=== PATIENT | male | born 1960 | race Caucasian/White ===

== ENCOUNTER → 2016-06-15 | Outpatient (CLI) | payer BC ==
[~2016-06-15] MED LIST: CLARITIN D TAB1 TAB PO; CLARITIN10 MG PO; FLOVENT0.11 MG/AC IH; IBUPROFEN800 MG PO; LOW DOSE ASPIRI81 MG PO; VENTOLIN0.09 MG IH
== END ==
LOC: COL.RAD 15:25
DX: R14.0 Abdominal distension (gaseous) (principal); R19.7 Diarrhea, unspecified

== ENCOUNTER → 2016-06-16 | Outpatient (CLI) | payer BC ==
[2016-06-16 18:25] LABS: BASO # 0.1 (0.0-0.2); BASO % 0.6 % (0.0-2.0); EOS # 0.2 (0.0-0.7); EOS % 2.4 % (0-4.0); GRAN # 4.8 (1.4-6.5); GRAN % 59.3 % (42.2-75.2); HEMATOCRIT 46.7 % (42.0-52.0); HEMOGLOBIN 15.5 g/dl (13.5-18.0); LYMPH # 2.3 (1.2-3.4); MEAN CELL VOLUME 87 fl (80.0-100.0); MEAN CORPUSCULAR HEMOGLOBIN 29 pg (27.0-31.0); MEAN CORPUSCULAR HGB CONC 33 g/dl (33.0-37.0); MEAN PLATELET VOLUME 9.9 fl (7.4-10.4); MONO # 0.8 (0.1-0.6); MONO % 9.5 % (1.7-9.3); PLATELET COUNT 291 K/mm3 (130-400); RED BLOOD COUNT 5.38 M/mm3 (4.20-5.60); REDCELL DISTRIBUTION WIDTH-CV 14.4 % (11.5-14.5); WHITE BLOOD COUNT 8.1 K/mm3 (4.8-10.8)
[2016-06-16 18:34] LABS: ADJUSTED CALCIUM 9.9 mg/dL (8.4-10.2); ALBUMIN 4.3 gm/dL (3.5-5.0); BILIRUBIN,TOTAL 0.7 mg/dL (0.0-1.0); CALCIUM 10.1 mg/dL (8.4-10.2); CREATININE, serum 0.92 mg/dL (0.66-1.25); POTASSIUM 4.3 mmol/L (3.4-5.0); TOTAL PROTEIN 7.4 gm/dL (6.4-8.2)
[2016-06-16 18:35] LABS: PH 7 (5-8); SQUAMOUS EPITHELIAL None Seen /hpf; URINE APPEARANCE Clear; URINE BACTERIA None Seen /hpf; URINE BILIRUBIN Negative (NEGATIVE); URINE BLOOD Negative (NEGATIVE); URINE COLOR Straw; URINE GLUCOSE Negative (NEGATIVE); URINE KETONE Negative (NEGATIVE); URINE RBC 0-2 /hpf; URINE UROBILINOGEN Negative (NEGATIVE); URINE WBC 0-2 /hpf
== END ==
LOC: COL.LAB 17:04
PROVIDERS: Registered Nurse
DX: R14.0 Abdominal distension (gaseous) (principal); R19.7 Diarrhea, unspecified

== ENCOUNTER → 2016-06-23 | Outpatient (CLI) | payer BC | LOC: EDSTATUS 14:29 → COL.LAB 15:35 | DX: R19.7 Diarrhea, unspecified (principal) ==

== ENCOUNTER → 2017-05-26 | Outpatient (CLI) | payer BC ==
[2017-05-26 16:05] LABS: BASO # 0.1 (0.0-0.2); BASO % 0.6 % (0.0-2.0); EOS # 0.4 (0.0-0.7); EOS % 4.1 % (0-4.0); GRAN # 6.1 (1.4-6.5); HEMATOCRIT 48.2 % (42.0-52.0); LYMPH # 2.1 (1.2-3.4); LYMPH % 22.3 % (20.0-51.0); MEAN CELL VOLUME 88 fl (80.0-100.0); MEAN CORPUSCULAR HEMOGLOBIN 29 pg (27.0-31.0); MEAN CORPUSCULAR HGB CONC 33 g/dl (33.0-37.0); MEAN PLATELET VOLUME 9.7 fl (7.4-10.4); MONO # 0.7 (0.1-0.6); MONO % 7.7 % (1.7-9.3); PLATELET COUNT 239 K/mm3 (130-400); RED BLOOD COUNT 5.49 M/mm3 (4.20-5.60); REDCELL DISTRIBUTION WIDTH-CV 14.6 % (11.5-14.5)
[2017-05-26 16:09] LABS: MUCOUS Present /lpf; PH 6 (5-8); SQUAMOUS EPITHELIAL None Seen /hpf; URINE APPEARANCE Clear; URINE BACTERIA None Seen /hpf; URINE BILIRUBIN Negative (NEGATIVE); URINE BLOOD Negative (NEGATIVE); URINE COLOR Yellow; URINE GLUCOSE Negative (NEGATIVE); URINE KETONE Negative (NEGATIVE); URINE LEUKOCYTE ESTERASE Negative (NEGATIVE); URINE NITRATE Negative (NEGATIVE); URINE PROTEIN(semi-quant) Negative (NEGATIVE); URINE RBC None Seen /hpf; URINE UROBILINOGEN Negative (NEGATIVE)
[2017-05-26 16:13] LABS: ALBUMIN 4.1 gm/dL (3.5-5.0); BILIRUBIN,TOTAL 0.4 mg/dL (0.0-1.0); CALCIUM 9.7 mg/dL (8.4-10.2); CREATININE, serum 0.82 mg/dL (0.66-1.25); POTASSIUM 3.9 mmol/L (3.4-5.0); TOTAL PROTEIN 7.7 gm/dL (6.4-8.2)
[2017-05-26 16:16] LABS: COLLECTION METHOD CLEAN CATCH
== END ==
LOC: COL.LAB 15:37
PROVIDERS: Registered Nurse
DX: R19.7 Diarrhea, unspecified (principal)

== ENCOUNTER → 2017-07-13 | Outpatient (CLI) | payer BC | LOC: COL.RAD 16:19 | DX: S81.801S Unspecified open wound, right lower leg, sequela (principal); M79.89 Other specified soft tissue disorders ==

== ENCOUNTER → 2017-08-06 | Outpatient (CLI) | payer BC | LOC: ZCOL.LAB 13:38 | DX: L97.919 Non-pressure chronic ulcer of unspecified part of right lower leg with unspecified severity (principal) ==

== ENCOUNTER → 2018-02-11 | Outpatient (CLI) | payer BC | LOC: COL.RAD 12:02 | DX: Z01.818 Encounter for other preprocedural examination (principal); E78.2 Mixed hyperlipidemia; F17.210 Nicotine dependence, cigarettes, uncomplicated ==

== ENCOUNTER 2019-06-30 06:56 | Day surgery (SDC) | payer BC ==
[~2019-06-30] VITALS: Ht 170.2 cm; Wt 110.7 kg
[2019-06-30 07:24] VITALS: BP 152/103; PULSE 100; TEMP 98.2
[2019-06-30] MEDS ORDERED: ASPIRIN 81M81 MG/TA2 PO (07:26)
[2019-06-30] MEDS ORDERED: PRIL40 PO (07:27)
[2019-06-30] MEDS ORDERED: EUTHYROX PO (07:28)
[2019-06-30] MEDS ORDERED: SOMA 350MG350 MG/TAB PO (07:29)
[2019-06-30] MEDS ORDERED: CLARITIN 1010 MG/TAB PO (07:30)
[2019-06-30] MEDS ORDERED: LIPITOR 40MG TA40 MG PO (07:30)
[2019-06-30] MEDS ORDERED: PROBIOTIC FORMU1 CAP PO (07:31)
[2019-06-30] MEDS ORDERED: CALCIUM CARBON650 M2 PO (07:32)
[2019-06-30] MEDS ORDERED: NORCO 325 MG-51 TAB PO (07:33)
[2019-06-30] MEDS ORDERED: OMEGA-3 1000 MG1 CAP PO (07:33)
[2019-06-30] MEDS ORDERED: NAPROSYN 2250 MG/TAB PO (07:34)
[2019-06-30 08:57] VITALS: BP 139/87; PULSE 96; TEMP 98.2
--- NOTE | 2019-06-30 08:57 | NUR ---
[place] [facility] [place], denies pain or nausea. Patient ambulates with stand by assist from cart to chair without any complications. Patient monitor applied, vitals stable. Patient given soda and muffin.
--- NOTE | 2019-06-30 09:05 | NUR ---
Dr Díaz into see patient at this time to go over results.
[2019-06-30 09:15] VITALS: BP 118/89; PULSE 89
--- NOTE | 2019-06-30 09:15 | NUR ---
Patient tolerates soda and muffin without any nausea, denies pain, vitals stable.
--- NOTE | 2019-06-30 09:30 | NUR ---
Dismissal instructions gone over with patient. Patient voices understanding and all questions answered.
--- NOTE | 2019-06-30 09:40 | NUR ---
Patient discharged to private vehicle at patient enterance via wheelchair. Patient's is driving. Patient and spouse leave thanking staff for services.
== END 2019-06-30 09:40 | disposition home or self-care (01) ==
LOC: SDCO 06:56
DX: D12.5 Benign neoplasm of sigmoid colon (principal); Z86.010 Personal history of colon polyps; K57.30 Diverticulosis of large intestine without perforation or abscess without bleeding; K21.9 Gastro-esophageal reflux disease without esophagitis; I10 Essential (primary) hypertension; E78.00 Pure hypercholesterolemia, unspecified
CPT/HCPCS: J2250; J3010; J7030

== ENCOUNTER → 2020-06-13 | Outpatient (CLI) | payer BC ==
[~2020-06-13] MED LIST changes: +ASPIRIN 81M81 MG/TA2 PO; +CALCIUM CARBON650 M2 PO; +CLARITIN 1010 MG/TAB PO; +EUTHYROX PO; +LIPITOR 40MG TA40 MG PO; +NAPROSYN 2250 MG/TAB PO; +NORCO 325 MG-51 TAB PO; +OMEGA-3 1000 MG1 CAP PO; +PRIL40 PO; +PROBIOTIC FORMU1 CAP PO; +SOMA 350MG350 MG/TAB PO
== END ==
LOC: COL.RAD 12:05
DX: S99.912A Unspecified injury of left ankle, initial encounter (principal); Z87.81 Personal history of (healed) traumatic fracture; M72.2 Plantar fascial fibromatosis

== ENCOUNTER → 2021-07-01 | Outpatient (CLI) | payer BC | LOC: COL.RAD 06:46 | DX: M47.812 Spondylosis without myelopathy or radiculopathy, cervical region (principal); M50.222 Other cervical disc displacement at C5-C6 level; M50.322 Other cervical disc degeneration at C5-C6 level; M48.02 Spinal stenosis, cervical region | CPT/HCPCS: A9575 ==

== ENCOUNTER → 2023-12-28 | Outpatient (CLI) | payer BC | LOC: COL.CARD 07:40 | DX: R63.5 Abnormal weight gain (principal) ==